=== PATIENT | female | born 1995 | race Two or more races ===

== ENCOUNTER → 2025-08-30 | Outpatient (CLI) | payer MEDICAID, SELFPAY ==
--- NOTE | 2025-08-30 09:45 | XR_ITS ---
Examination: Transvaginal ultrasound of the pelvis, complete Technique: Transvaginal sonographic images pelvis performed using sarabia scale imaging Exam date and time: August 30, 2025, 1002 hours INDICATIONS: Irregular heavy menses 1 year. FINDINGS: Uterus 7.2 cm, endometrial stripe 16 mm Mild free fluid in the endometrium No discrete uterine mass No intrauterine gestation Right ovary 4.0 cm arterial flow, multiple small follicles Left ovary 4.8 cm arterial flow, multiple follicles, the largest 25 x 17 x 16 mm. Solid-appearing left ovarian mass 27 x 16 x 17 mm IMPRESSION: Solid-appearing left ovarian mass 27 x 16 x 17 mm, recommend MRI pelvis follow-up pre and postcontrast
== END | disposition home or self-care (01) ==
LOC: CDIM 09:30
PROVIDERS: PCP Nurse Practitioner Family; Referring Provider Nurse Practitioner Family; Visit Provider Nurse Practitioner Family
DX: N83.8 Other noninflammatory disorders of ovary, fallopian tube and broad ligament (principal)
CPT/HCPCS: 76830